=== PATIENT | male | born 1990 | race American Indian/Alaskan Native ===

== ENCOUNTER 2017-07-24 13:25 | Emergency (ER) | payer OTHER ==
[2017-07-24 13:33] VITALS: BP 117/75; PULSE 87; RESP 16; TEMP 98.2; O2SAT 97
[2017-07-24] MEDS ORDERED: Fluorescein 1 mg Ophthalmic Strip ONE (14:08)
[2017-07-24] MEDS ORDERED: Tetracaine 0.5% Ophth (OR ONLY) ONE (14:08)
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
== END 2017-07-24 14:44 | disposition home or self-care (01) ==
LOC: C.ER 13:25
DX: S05.02XA Injury of conjunctiva and corneal abrasion without foreign body, left eye, initial encounter (principal); W20.8XXA Other cause of strike by thrown, projected or falling object, initial encounter